=== PATIENT | male | born 1940 | race Caucasian/White ===

== ENCOUNTER 2017-02-25 10:47 | Observation (INO) | payer OTHER, MEDICARE ==
--- NOTE | 2017-02-25 11:19 | EDPHY ---
H & P - Medical/Surgical History Hx Asthma: No Hx Chronic Respiratory Disease: No Hx Diabetes: No Hx Cardiac Disease: Yes Hx Renal Disease: No Hx Cirrhosis: No Hx Alcoholism: No Hx HIV/AIDS: No Hx Splenectomy or Spleen Trauma: No Other PMH: AFIB/BPH/GERD - Social History Smoking Status: Never smoked Constitutional: Initial Vital Signs Temperature (C) 36.8 C 02/25/17 11:13 Heart Rate 41 L 02/25/17 11:13 Respiratory Rate 20 02/25/17 11:13 Blood Pressure 140/72 H 02/25/17 11:13 O2 Sat (%) 98 02/25/17 11:13 O2 Delivery Mode Room Air O2 (L/minute) 2 Allergies/Adverse Reactions: pantoprazole sodium [From Protonix] Allergy (Intermediate, Verified 09/23/15 15: 32) Rash Home Medications: Medication Instructions Recorded OMEPRAZOLE 07/25/10 Aspirin 325 mg (OTC) 09/23/15 Avodart 0.5 MG (RX) 09/23/15 Bystolic 09/23/15 Medical Decision Making - Diagnostics Imaging Results: Imaging Impressions Head CT 02/25/17 11:12 Impression: 1. No significant intracranial abnormality seen. No evidence of hemorrhage or infarct. 2. Small enhancing nodule at the right IAC seen on prior MRI study is not appreciated on CT imaging. Rule out small acoustic neuroma versus meningioma. Findings discussed with Jamie Griffin MD at 11:25 hour, 02/25/2017. Chest X-Ray 02/25/17 11:16 Impression: Negative chest. Imaging: Discussed imaging studies w/ physically impaired teacher Radiologist, I viewed and interpreted images myself ED Course/Re-evaluation: CHIEF COMPLAINT: Dizziness, facial droop HISTORY OF PRESENT ILLNESS: The patient is a 76 y/o male complaining of waxing and waning dizziness since early this morning around 05:00, about 6 hours ago. He has a history of atrial fibrillation for which he takes Bystolic and aspirin. Around 05:00, he woke feeling dizzy, but was able to go back to sleep. Around 06:30, he woke up with the same symptoms and felt unbalanced and generally weak as he walked to the bathroom. He then noticed left-sided facial droop. His weakness and feeling of dis-coordination has been waxing and waning since 06:30. No headache, speech difficulty, unilateral weakness or paresthesias, or vision changes. No anticoagulants. REVIEW OF SYSTEMS: A 10 point review of systems was performed and is negative with the exception of the elements mentioned in the history of present illness. PHYSICAL EXAM: HR, BP, O2 Sat, RR. Temp noted General Appearance: Alert, well hydrated, appropriate, and non-toxic appearing. Head: Atraumatic without scalp tenderness or obvious injury Eyes: Pupils equal, round, reactive to light and accommodation, EOMI, no trauma , no injection. Ears: Clear bilaterally, no perforation, normal landmarks Nose: Atraumatic, no rhinorrhea, clear. Throat: There is no erythema or exudates, no lesions, normal tonsils, mucus membranes moist. Neck: Supple, non-tender, no lymphadenopathy. Respiratory: No retractions, no distress, no wheezes, and no accessory muscle use. Lungs are clear to auscultation bilaterally. Cardiovascular: Irregular rate and rhythm, no murmurs, rubs, or gallops. Good capillary refill all extremities. Gastrointestinal: Abdomen is soft, non-tender, non-distended, no masses, no rebound, no guarding, no peritoneal signs. Musculoskeletal: Normal active ROM of all extremities, atraumatic. Neurological: Alert, appropriate, and interactive. The patient has normal DTRs and non-focal cranial nerves, motor, sensory, and cerebellar exam with exception of left-sided facial droop that spares the forehead. Skin: No rashes, good turgor, no nodules on palpation. PAST MEDICAL HISTORY: Sleep apnea, atrial fibrillation, BPH PAST SURGICAL HISTORY: Past ablation. SOCIAL HISTORY: at bedside Audit Machine Operator: Dr. Lozoya DIAGNOSTICS/PROCEDURES/CRITICAL CARE TIME: The 12 lead EKG was interpreted by myself. Atrial fibrillation with controlled rate. See hard copy and/or "tracemaster" electronic copy for interpretation. Chest x-ray: negative Head CT: Negative for acute process Critical care time spent by me, Dr. Griffin, exclusively with this patient was 45 minutes, exclusive of PA time and exclusive of procedures. The organ system at risk was neurovascular and I gave IVF, activated stroke alert, consulted with cardiology and neurology, and transferred the patient to the hospitalist to prevent worsening of the patients condition. DIFFERENTIAL DIAGNOSIS: The differential diagnosis for the patient's neurologic deficits included but was not limited to peripheral causes, central causes including CVA, TIA, electrolyte abnormalities and dehydration, cardiogenic causes, atypical causes like migraine syndrome, and atrial fibrillation. MEDICAL DECISION MAKING: This is a 76 y/o male with a history of atrial fibrillation who presents with a least a 6-hour history of dizziness, weakness, and left-sided facial droop. He does not use an anticoagulant apart from aspirin for his atrial fibrillation. He continues to feel symptomatic here and has mild left facial droop that spares his forehead on exam. No appreciable unilateral weakness. Patient's presentation is concerning for stroke. Plan for full stroke work up including IV , labs, EKG, chest x-ray, and urgent head CT. 1111: Stroke alert activated. 1114: Patient sent to CT. 1120: Consulted with Dr. Gonzales, [facility] neurologist. Will assess patient via telemedicine bot. 1126: Negative non-contrast head CT per Dr. Varela, radiology. 1130: Consulted with Dr. Gonzales, teleneurology. She agrees with plan for admission and no TPA intervention. In-house neurologist and Dr. Devora acevedo. 1147: Consulted with Dr. Hager, neurologist. He will assess patient during admission. 1150: Consulted with Pranay, cardiology. Dr. Evans will assess patient during admission. 1203: Spoke with hospitalist service. Dr. Murillo accepts admission for further stroke evaluation. - Data Points Laboratory Results: Laboratory Results 02/25/17 11:10 02/25/17 11:10 02/25/17 02/25/17 02/25/17 11:50 11:10 11:10 WBC RBC Hgb POC Hgb Hct POC Hct MCV MCH MCHC RDW Plt Count MPV Neut % (Auto) Lymph % (Auto) Esmeralda % (Auto) Eos % (Auto) Baso % (Auto) Nucleat RBC Rel Count Absolute Neuts (auto) Absolute Lymphs (auto) Absolute Monos (auto) Absolute Eos (auto) Absolute Basos (auto) Absolute Nucleated RBC Immature Gran % Immature Gran # PT 13.2 SEC SEC (12.0-15.0) INR 1.01 (0.83-1.16) APTT 28.1 SEC SEC (23.0-38.0) POC Sodium Sodium 139 mEq/L mEq/L (134-144) POC Potassium Potassium 4.1 mEq/L mEq/L (3.5-5.2) POC Chloride Chloride 104 mEq/L mEq/L (97-110) Carbon Dioxide 22 mEq/l mEq/l (22-31) Anion Gap 13 mEq/L mEq/L (8-16) POC BUN BUN 9 mg/dL mg/dL (7-23) Creatinine 0.9 mg/dL mg/dL (0.7-1.3) POC Creatinine Estimated GFR > 60 Glucose 89 mg/dL mg/dL (70-100) POC Glucose Calcium 9.5 mg/dL mg/dL (8.5-10.4) Troponin I < 0.012 ng/mL ng/mL (0-0.034) Patient ABO/Rh Pending Antibody Screen Pending 02/25/17 02/25/17 11:10 11:07 WBC 4.93 10^3/uL 10^3/uL (3.80-9.50) RBC 4.57 10^6/uL 10^6/uL (4.40-6.38) Hgb 15.1 g/dL g/dL (13.7-17.5) POC Hgb 15.6 gm/dL gm/dL (13.7-17.5) Hct 43.9 % % (40.0-51.0) POC Hct 46 % % (40-51) MCV 96.1 fL fL (81.5-99.8) MCH 33.0 pg pg (27.9-34.1) MCHC 34.4 g/dL g/dL (32.4-36.7) RDW 12.5 % % (11.5-15.2) Plt Count 216 10^3/uL 10^3/uL (150-400) MPV 11.3 fL fL (8.7-11.7) Neut % (Auto) 59.5 % % (39.3-74.2) Lymph % (Auto) 26.8 % % (15.0-45.0) Esmeralda % (Auto) 10.1 % % (4.5-13.0) Eos % (Auto) 2.6 % % (0.6-7.6) Baso % (Auto) 0.6 % % (0.3-1.7) Nucleat RBC Rel Count 0.0 % % (0.0-0.2) Absolute Neuts (auto) 2.93 10^3/uL 10^3/uL (1.70-6.50) Absolute Lymphs (auto) 1.32 10^3/uL 10^3/uL (1.00-3.00) Absolute Monos (auto) 0.50 10^3/uL 10^3/uL (0.30-0.80) Absolute Eos (auto) 0.13 10^3/uL 10^3/uL (0.03-0.40) Absolute Basos (auto) 0.03 10^3/uL 10^3/uL (0.02-0.10) Absolute Nucleated RBC 0.00 10^3/uL 10^3/uL (0-0.01) Immature Gran % 0.4 % % (0.0-1.1) Immature Gran # 0.02 10^3/uL 10^3/uL (0.00-0.10) PT INR APTT POC Sodium 138 mEq/L mEq/L (134-144) Sodium POC Potassium 4.0 mEq/L mEq/L (3.3-5.0) Potassium POC Chloride 99 mEq/L mEq/L (97-110) Chloride Carbon Dioxide Anion Gap POC BUN 8 mg/dL mg/dL (7-23) BUN Creatinine POC Creatinine 1.0 mg/dL mg/dL (0.7-1.3) Estimated GFR Glucose POC Glucose 93 mg/dL mg/dL (70-100) Calcium Troponin I Patient ABO/Rh Antibody Screen Point of Care Test Results: 02/25/17 11:07 POC Sodium 138 POC Potassium 4.0 POC Chloride 99 POC BUN 8 POC Creatinine 1.0 POC Glucose 93 Departure - Departure Disposition: [facility] Inpatient Acute Clinical Impression: Stroke Qualifiers: CVA mechanism: other Qualified Code(s): I63.8 - Other cerebral infarction Atrial fibrillation Qualifiers: Atrial fibrillation type: unspecified Qualified Code(s): I48.91 - Unspecified atrial fibrillation Condition: Fair Referrals: ALYSSA TAY MD [Other] - As per Instructions Report Scribed for: Jamie Griffin Report Scribed by: Ashley Swanson Date of Report: 02/25/17 Time of Report: 11:19
[2017-02-25 11:25] LABS: % IMMATURE GRANULYOCYTES 0.4 % (0.0-1.1); ABSOLUTE IMMATURE GRANULOCYTES 0.02 10^3/uL (0.00-0.10); ADD DIFF? NO; ADD MORPH? NO; ADD SCAN? NO; ATYPICAL LYMPHOCYTE FLAG 0 (0-99); FRAGMENT RBC FLAG 0 (0-99); HEMATOCRIT 43.9 % (40.0-51.0); HEMOGLOBIN 15.1 g/dL (13.7-17.5); LEFT SHIFT FLG 0 (0-99); LIPEMIA HEMOLYSIS FLAG 90 (0-99); MEAN CELL HEMOGLOBIN CONCENTR. 34.4 g/dL (32.4-36.7); MEAN CELL VOLUME 96.1 fL (81.5-99.8); MEAN PLATELET VOLUME 11.3 fL (8.7-11.7); PLATELET CLUMPS FLAG 10 (0-99); PLATELET COUNT 216 10^3/uL (150-400); RED BLOOD CELL COUNT 4.57 10^6/uL (4.40-6.38); RED CELL DISTRIBUTION WIDTH 12.5 % (11.5-15.2)
--- NOTE | 2017-02-25 11:26 | CPEKG ---
Heart Rate: 47 RR Interval: 1277 P-R Interval: 164 QRSD Interval: 86 QT Interval: 468 QTC Interval: 414 P Bellamy: 73 QRS Bellamy: -1 T Wave Bellamy: 17 EKG Severity - OTHERWISE NORMAL ECG - EKG Impression: SINUS BRADYCARDIA EKG Impression: ATRIAL PREMATURE COMPLEX Electronically Signed By: Jamie Griffin 25-Feb-2017 14:57:55
[2017-02-25 11:33] LABS: INR 1.01 (0.83-1.16); PROTIME(PATIENT) 13.2 SEC (12.0-15.0)
[2017-02-25 11:34] LABS: APTT 28.1 SEC (23.0-38.0)
[2017-02-25 11:37] LABS: ANION GAP 13 mEq/L (8-16); CALCIUM 9.5 mg/dL (8.5-10.4); CARBON DIOXIDE 22 mEq/l (22-31); CHLORIDE 104 mEq/L (97-110); CREATININE 0.9 mg/dL (0.7-1.3); GLOMERULAR FILTRATION RATE > 60; GLUCOSE 89 mg/dL (70-100); POTASSIUM 4.1 mEq/L (3.5-5.2); SODIUM 139 mEq/L (134-144)
[2017-02-25 11:47] LABS: TROPONIN I < 0.012 ng/mL (0-0.034)
[2017-02-25] MEDS ORDERED: ONDANSETRON DISINTEGRATING 4 MG TAB PO PRN (13:12)
[2017-02-25] MEDS ORDERED: ONDANSETRON 4 MG/2 ML VIAL IVP PRN (13:12)
[2017-02-25] MEDS ORDERED: ACETAMINOPHEN 325 MG TAB PO PRN (13:12)
--- NOTE | 2017-02-25 17:18 | ECHO ---
[id number] + + [address] : : [place] [address] : : [phone] + + Adult Echocardiographic Report + ---------+ :Name: MAT SANTOS WStudy Date: 02/25/2017 02:03 PM : : Hospital Admission Number: [id number] Devora rodriguez: [birth year]: :: 1940 Gender: Male Height: 73 i n : :Age: 76 yrs Race: WH Weight: 202 lb : :Reason For Study: Eval for embolic source : : BSA: 2.2 met ers2 : :History: TIA, Bubble exam : + ---------+ MMode/2D Measurements \T\ Calculations IVSd: 0.91 cm LVIDd: 5.2 cm FS: 45.4 % Ao root diam: 3.3 cm LVPWd: 0.95 cm LVIDs: 2.9 cm EDV(Teich): 131.9 ml ACS: 1.9 cm ESV(Teich): 31.2 ml EF(Teich): 76.3 % Normal Measurement Values: + + :LVIDd (3.5-5.7cm) IVSd (0.6-1.1cm) LVPWd (0.6-1.1cm) Aortic Root (2.0-3.7cm)Left Atrium (1.5-4.0cm): :LV Vol(d) (76-115ml) LV Vol(s) (29-48ml) Ejec Fraction (50-65%)PV Andrés (0.6- 1.2m/s) TV Andrés (0.4-1.0m/s) : :MV E Anrdés (0.8-1.0m/s)MV A Andrés (0.3-1.0m/s)LVOT Andrés (0.7-1.2m/s) Asc Ao Andrés ( 0.9-1.8m/s) : + + Doppler Measurements \T\ Calculations MV E max andrés: Ao V2 max: LV V1 max: PA V2 max: 31.6 cm/sec 120.8 cm/sec 83.9 cm/sec 73.3 cm/sec MV A max andrés: Ao max P.8 mmHgLV V1 max PG: PA max P.4 cm/sec 2.8 mmHg 2.1 mmHg MV E/A: 0.64 TR max andrés: 274.2 cm/sec TR max P.1 mmHg RAP systole: 5.0 mmHg RVSP(TR): 35.1 mmHg Left Ventricle The left ventricle is normal in size. There is normal left ventricular wall thickness. The left ventricular ejection fraction is normal. There is Doppler evidence for diastolic dysfunction. Bradycardia. Ejection Fraction = 76%. The left ventricular wall motion is normal. Right Ventricle The right ventricle is normal in size and function. Atria The left atrial size is normal. Right atrial size is normal. Injection of contrast documented no interatrial shunt. The interatrial septum is intact with no evidence for an atrial septal defect. Mitral Valve The mitral valve is normal in structure and function. There is no evidence of mitral valve prolapse. There is no mitral valve stenosis. There is mild mitral regurgitation. Tricuspid Valve Normal tricuspid valve. There is trace tricuspid regurgitation. Right ventricular systolic pressure is normal. Aortic Valve The aortic valve is normal in structure and function. There is no aortic stenosis. There is no aortic insufficiency. Pulmonic Valve The pulmonic valve is normal in structure and function. There is no pulmonic valvular regurgitation. Great Vessels The aortic root is normal size. Pericardium/Pleural There is no pericardial effusion. Conclusion A complete two-dimensional transthoracic echocardiogram was performed (2D, M-mode, Doppler and color flow Doppler). The left ventricular ejection fraction is normal. Ejection Fraction = 76%. The left ventricular wall motion is normal. There is Doppler evidence for diastolic dysfunction. The right ventricle is normal in size and function. Injection of contrast documented no interatrial shunt. The interatrial septum is intact with no evidence for an atrial septal defect. The mitral valve is normal in structure and function. There is mild mitral regurgitation. There is trace tricuspid regurgitation. Right ventricular systolic pressure is normal. The aortic valve is normal in structure and function. There is no aortic stenosis. There is no aortic insufficiency. There is no pericardial effusion. Final Reading Physician: Michael Noel signed on 02/25/2017 05:16 PM Ordering Physician: Sara Murillo Performed By: Derrek Quigley, CS
--- NOTE | 2017-02-25 19:23 | GHP ---
[f rep st] HISTORY AND PHYSICAL DATE OF ADMISSION: 02/25/2017 CHIEF COMPLAINT: Weakness. HISTORY OF PRESENT ILLNESS: Patient is a 76-year-old male, who is complaining of weakness, fatigue, and dizziness since this morning. He awoke this morning at 4 a.m. without issue to go to the restroom. He awoke again at 5 a.m. and felt very dizzy and fatigued. Again at 6 a.m., he had no balance; thus, he crawled to the restroom. He was Googling on the Internet signs of a stroke and noted that his smile was not quite normal; thus, he came to the emergency room. He thinks he was dehydrated. He went kayaking on Saturday and never rehydrated and then went for an hour hike yesterday evening. Denies any focal weakness. No slurred speech. Denies fevers, chills, or sweats. No nausea, vomiting, diarrhea. No headache. He feels well at this point. REVIEW OF SYSTEMS: I completed a 10-point review of systems, negative except as noted in HPI. PAST MEDICAL HISTORY: 1. Atrial fibrillation. 2. BPH. 3. GERD. 4. Meningioma, stable from scan in August 2016 per his report. 5. VERNON on CPAP. SOCIAL HISTORY: . Retired bioengineer. Lives in [place] half time and [place] half time. No alcohol, tobacco, or illicits. FAMILY HISTORY: Paternal grandmother with heart disease. PAST SURGICAL HISTORY: Ablation. HOME MEDICATIONS: Herbal supplement, omeprazole, Bystolic 2.5 mg daily, Avodart 0.5 mg q.h.s., aspirin 325 daily. ALLERGIES: Protonix. PHYSICAL EXAMINATION: VITAL SIGNS: Temperature is 35.2, blood pressure 133/69 , heart rate of 40, respiration 18, 98% on room air. GENERAL: Well-appearing male sitting up in bed in no acute distress. HEENT: PERRLA. EOMI. Oropharynx clear. CV: Regular, bradycardic. No murmurs, gallops, or rubs. LUNGS: Clear to auscultation bilaterally. ABDOMEN: Soft, nontender, nondistended. Positive bowel sounds. : No suprapubic tenderness. MUSCULOSKELETAL: 5/5 upper and lower extremity strength. NEURO: 2 through 12 intact. Normal proprioception. Negative pronator drift. +2 patellar Achilles reflexes bilaterally. Normal sensation to touch. PSYCH: Alert and oriented x3. LABORATORY DATA: WBCs are 4.9, hemoglobin 15, hematocrit 43, platelets 216, INR 1, PT 13, sodium 139, potassium 4.1, chloride 104, carbon dioxide 22, creatinine 0.9, glucose 89, calcium 9.5, troponin is less than 0.012. TSH is 1.290. EKG is personally reviewed by me, bradycardic, heart rate 47, no ST elevation or depression, similar to prior. Chest x-ray personally reviewed by me. No evidence of opacity or effusion. Brain MRI: Mild cerebral atrophy. No acute infarct, hemorrhage, or hydrocephalus. 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 Head and neck MRA: Mild atherosclerotic disease in bilateral proximal ICAs without evidence of complete occlusion. Echocardiogram: EF is 76%, evidence of diastolic dysfunction. No interatrial shunt. ASSESSMENT AND PLAN: 1. Weakness/possible facial droop: Evaluation thus far has been unrevealing with the negative CT, brain MRI, and CTA. Echocardiogram does not show shunt. No evidence of arrhythmia. Currently, he is in normal sinus rhythm with known history of atrial fibrillation. We will continue telemetry overnight. Neurology to evaluate. Have PT, OT, speech therapy evaluate. Symptoms have resolved and may all be secondary to dehydration per patient's history. 2. Atrial fibrillation: Normal sinus rhythm. Currently his primary lease examiner is Dr. Lozoya. He is bradycardic, on Bystolic and patient states his lease examiner aware and is okay with this, but I will discuss the case with Dr. Lozoya. 3. Gastroesophageal reflux disease, PPI. 4. Diet: Regular. 5. DVT prophylaxis, Lovenox. 6. Disposition: Patient warrants observation admission given acute weakness and concern for stroke. Monitor on telemetry for arrhythmia. /[id number]/MODL MTDD
[2017-02-25] MEDS ORDERED: DUTASTERIDE 0.5 MG CAP PO SCH (21:00)
[2017-02-26 04:37] VITALS: O2SAT 95
[2017-02-26 05:19] LABS: ALANINE AMINOTRANSFERASE 30 IU/L (21-72); ALBUMIN 3.5 g/dL (3.5-5.0); ALKALINE PHOSPHATASE 63 IU/L (38-126); ANION GAP 9 mEq/L (8-16); ASPARTATE AMINOTRANSFERASE 18 IU/L (17-59); BILIRUBIN,TOTAL 0.7 mg/dL (0.1-1.4); CALCIUM 9.3 mg/dL (8.5-10.4); CARBON DIOXIDE 21 mEq/l (22-31); CHLORIDE 109 mEq/L (97-110); CHOLESTEROL 192 mg/dL (140-220); CREATININE 0.9 mg/dL (0.7-1.3); GLOMERULAR FILTRATION RATE > 60; GLUCOSE 85 mg/dL (70-100); HIGH DENSITY LIPOPROTEIN 30 mg/dL (40-65); LDL/HDL RATIO 4.53 RATIO (1.00-3.64); LOW DENSITY LIPOPROTEIN 136 mg/dL (80-100); NON-HIGH DENSITY LIPOPROTEIN 162 mg/dL (90-129); POTASSIUM 4.3 mEq/L (3.5-5.2); SODIUM 139 mEq/L (134-144); TRIGLYCERIDE 132 mg/dL (40-150); VERY LOW DENSITY LIPOPROTEINS 26 mg/dL (8-25)
[2017-02-26 08:12] VITALS: BP 127/84; PULSE 58; RESP 20; TEMP 97.2
--- NOTE | 2017-02-26 08:32 | HOSPPROG ---
Hospitalist Progress Note Assessment/Plan: #Weakness: suspect dehydration. Imaging negative for CVA. EKG with NSR. TTE WNL , no PFO #A fib: cont BB, ASA #GERD #BPH Disp: DC today Subjective: no weakness or slurred speech Objective: Vital Signs Temp Pulse Resp BP Pulse Ox 36.2 C 58 L 20 127/84 H 95 02/26/17 08:00 02/26/17 08:14 02/26/17 08:00 02/26/17 08:14 02/26/17 08:00 Laboratory Results 02/26/17 04:45 02/25/17 02/26/17 02/27/17 05:59 05:59 05:59 Intake Total 300 Balance 300 PT 13.2 SEC (12.0-15.0) 02/25/17 11:10 INR 1.01 (0.83-1.16) 02/25/17 11:10 - Physical Exam Constitutional: no apparent distress Eyes: PERRL Ears, Nose, Mouth, Throat: moist mucous membranes Cardiovascular: regular rate and rhythym, no murmur, rub, or gallop, bradycardia Respiratory: no respiratory distress Gastrointestinal: normoactive bowel sounds, soft, non-tender abdomen Genitourinary: no bladder fullness Skin: warm Musculoskeletal: full muscle strength Neurologic: AAOx3, CN II-XII Intact Psychiatric: interacting appropriately Lymph, Heme, Immunologic: no cervical LAD ICD10 Worksheet Patient Problems: Problems Problem Status Onset Atrial fibrillation Acute Stroke Acute
[2017-02-26] MEDS ORDERED: NON-FORMULARY NEW DRUG (Nebivolol Hcl [Bystolic] 2.5 MG) PO SCH (09:00)
[2017-02-26] MEDS ORDERED: OMEPRAZOLE MAGNESIUM 20 MG PO SCH (09:00)
[2017-02-26] MEDS ORDERED: NON-FORMULARY NEW DRUG (Omeprazole Magnesium [Prilosec Otc] 20 MG) PO SCH (09:00)
[2017-02-26] MEDS ORDERED: NEBIVOLOL HCL 5 MG TAB PO SCH (09:00)
[2017-02-26] MEDS ORDERED: ASPIRIN 81 MG CHEWABLE TAB PO SCH (09:00)
[2017-02-26] MEDS ORDERED: Herbals/Supplements -Info Only PO SCH (09:00)
--- NOTE | 2017-02-26 15:35 | GDS ---
[f rep st] DISCHARGE SUMMARY DISCHARGE DIAGNOSES: 1. Weakness, left facial droop. 2. Permanent atrial fibrillation. 3. Gastroesophageal reflux disease. 4. Benign prostatic hypertrophy. 5. Meningioma. 6. Obstructive sleep apnea on CPAP. CONSULTATIONS: Neurology. HISTORY OF PRESENT ILLNESS: Patient is a 76-year-old male with history of atrial fibrillation, is complaining of weakness, fatigue, and dizziness since the morning of admission. He woke that morning without issue going to the restroom, he woke again at 5 a.m., felt very dizzy, but did not get out of bed. Again at 6 a.m., he had no balance, thus he crawled to the restroom. He was googling on the internet signs of a stroke, and noted that his smile was not quite normal. Per ER report, he had a left facial droop. Patient was evaluated by Rd Faria in the emergency room. No indication for tPA. HOSPITAL COURSE BY PROBLEM: 1. Weakness/possible facial droop: Patient had extensive evaluation with a negative CT head, brain MRI and CTA. Echocardiogram was negative with bubble. There was no evidence of arrhythmia, he is in normal sinus rhythm. Suspect that he was dehydrated per his history. He has no neuro deficits today. Neurology evaluated as well and agrees. 2. Atrial fibrillation: He is currently in normal sinus rhythm. He is bradycardic, but he states that Dr. Lozoya is okay with heart rate 40s to 50s. I recommend he follows up with him. His CHADS2-VASc score is 1. We will continue a full dose aspirin. 3. Gastroesophageal reflux disease. PPI. DISPOSITION: Patient is stable for discharge. FOLLOW UP: Dr. Lozoya. /[id number]/MODL MTDD
--- NOTE | 2017-02-26 22:22 | GCON ---
[f rep st] CONSULTATION NEUROLOGY CONSULTATION SEVENTY TOTAL MINUTES ON FLOOR TIME TODAY, THIS INCLUDED REVIEWING BRAIN MRI, MRA OF THE HEAD AND NECK, ECHOCARDIOGRAM, HISTORY, ELECTRONIC HEALTH RECORDS, AND DIRECTLY COUNSELING THE PATIENT AND HIS . DATE OF CONSULTATION: 02/26/2017 REFERRING PHYSICIAN: Sara Murillo MD CHIEF COMPLAINT: Episode of generalized weakness. HISTORY OF PRESENT ILLNESS: The patient is a very pleasant and active 76-year- old gentleman who went on an extensive kayaking trip Saturday and admitted to getting dehydrated. He then went on a 1-2 hour steep uphill hike at [facility] Saturday and again got dehydrated. Then Saturday, he woke up feeling weak, fatigued, and dizzy to the point where he had to crawl to his computer. However, he does not think there is any focal weakness in his legs or any lateralized weakness. He felt weak all over and fatigued and just generally unwell. He received IV hydration and is completely normal now doing leg lifts when I walked into the room. REVIEW OF SYSTEM: Ten point review of systems was done and only pertinent to the HPI. PAST MEDICAL HISTORY: Atrial fibrillation, meningioma, stable from August 2016. SOCIAL HISTORY: , retired resident engineer. FAMILY HISTORY: Negative for heritable neurologic disease. MEDICATIONS: At home Aspirin 325 mg daily, Avodart, Bystolic. ALLERGIES: Protonix. PHYSICAL EXAMINATION: VITAL SIGNS: Temperature 35.2, blood pressure 133/68, heart rate 40. GENERAL: In no acute distress. Very pleasant. HIGHER MENTAL FUNCTION: Awake, alert, oriented 5/5. No aphasia. CRANIAL NERVE EXAM: Normal 2 through 7, 11, and 12. MOTOR EXAM: Normal strength, tone and reflexes throughout. SENSORY EXAM: Normal to light touch in all 4 extremities. COORDINATION: Normal in upper and lower extremities. GAIT: Normal. DIAGNOSTIC TESTING: MRI brain showed a stable meningioma that is well known to the patient and our radiology department with outside scans put in the system. It is a right vestibular area lesion measuring 6 x 5 mm. He had no acute infarct or other findings. MRA of the neck showed mild atherosclerotic disease without significant stenosis. 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 Echocardiogram showed no intracardiac thrombus. Ejection fraction was 76%, no shunting. ECG telemetry did not reveal any atrial fibrillation during this hospitalization. However, he has known atrial fibrillation. IMPRESSION AND PLAN: 1. Episode of generalized weakness. 2. Previous history of paroxysmal atrial fibrillation. Overall, my impression is that the patient had an episode of dehydration from his extensive outdoor recreational activities including kayaking and hiking. He has completely normalized with rehydration. I do not think this was a transient ischemic attack. The patient does have paroxysmal atrial fibrillation and is being treated with aspirin 325 mg daily. He certainly could touch base with his house nurse regarding any other recommendations i.e. oral anticoagulation. No further recommendations from Neurology at this time. He will likely discharge later today. Please do not hesitate to call if there are any changes in neurologic status or questions. Thank you for this consultation. /[id number]/MODL MTDD
== END 2017-02-26 12:42 | disposition home or self-care (01) ==
LOC: INTOOBSV 12:03 → F3N 13:33
PROVIDERS: ADMIT Internal Medicine; ATTEND Internal Medicine
DX: R29.810 Facial weakness (principal); I48.2 Chronic atrial fibrillation; K21.9 Gastro-esophageal reflux disease without esophagitis; N40.0 Benign prostatic hyperplasia without lower urinary tract symptoms; D32.9 Benign neoplasm of meninges, unspecified; G47.33 Obstructive sleep apnea (adult) (pediatric)
CPT/HCPCS: 70450; 70544; 70547; 70551; 71010; 92523; 93005; 93306; 97161; 99291; G0378; G8978; G8979; G8980; G9168; G9169; G9170; 82947-QW

== ENCOUNTER → 2017-04-04 | Outpatient (CLI) | payer OTHER, MEDICARE | LOC: BHFA 13:30 | PROVIDERS: ATTEND Internal Medicine Cardiovascular Disease | DX: I48.91 Unspecified atrial fibrillation (principal) ==

== ENCOUNTER → 2018-04-25 | Outpatient (CLI) | payer OTHER, MEDICARE | LOC: FIMAGING 13:44 | PROVIDERS: ATTEND Internal Medicine Cardiovascular Disease | DX: I48.92 Unspecified atrial flutter (principal) ==

== ENCOUNTER → 2018-04-28 | Day surgery (SDC) | payer OTHER, MEDICARE ==
[~2018-04-28] MED LIST: ATROPINE SULFATE 1 MG/10 ML SYR IVP ONE; BENZOCAINE UNIT DOSE SPRAY HURRICAINE MM ONE; MIDAZOLAM 2 MG/2 ML VIAL IVP ONE; NS 500 ML IV ONE; fentaNYL 100 MCG/2 ML INJ IVP ONE
--- NOTE | 2018-04-28 10:09 | CPEKG ---
Test Reason : OPEN Blood Pressure : / mmHG Vent. Rate : 046 BPM Atrial Rate : 093 BPM P-R Int : 156 ms QRS Dur : 087 ms QT Int : 454 ms P-R-T Axes : 069 002 020 degrees QTc Int : 398 ms Sinus bradycardia Atrial premature complex Minimal ST elevation, anterior leads Confirmed by Jeevan Hansen ([id number]) on 04/28/2018 10:08:33 AM Referred By: Confirmed By:Jeevan Hansen
== END | disposition home or self-care (01) ==
LOC: FCATH 09:02
PROVIDERS: ATTEND Internal Medicine Cardiovascular Disease
DX: I48.92 Unspecified atrial flutter (principal); I48.0 Paroxysmal atrial fibrillation; Z79.01 Long term (current) use of anticoagulants; Z53.09 Procedure and treatment not carried out because of other contraindication

== ENCOUNTER → 2018-07-31 | Outpatient (CLI) | payer OTHER, MEDICARE | LOC: BHFA 13:45 | PROVIDERS: ATTEND Internal Medicine Cardiovascular Disease | DX: I48.91 Unspecified atrial fibrillation (principal) ==